=== PATIENT | female | born 1970 | race Caucasian/White ===

== ENCOUNTER 2017-07-20 09:26 | Day surgery (SDC) | payer OTHER ==
[2017-07-20] MEDS ORDERED: PROPOFOL 20 ML ONE ×2 (10:22)
[2017-07-20 10:25] VITALS: BMI 34.9
[2017-07-20 11:13] VITALS: TEMP 97.2
[2017-07-20 12:49] VITALS: BP 110/56; PULSE 75
--- NOTE | 2017-07-21 15:47 | PATH ---
Surgical Pathology Report Patient Name: SHILO RAINEY [facility]. Rec. #: [id number] /Age/Gender: 1970 (Age: 46) / F Account: [id number] Location: U-ENDOSCOPY Taken: 07/20/2017 Received: 07/20/2017 Reported: 07/21/2017 Physicians: Alex Fitzpatrick M.D. Specimen(s) Received BX TERMINAL ILEUM Clinical History Family history of colon cancer, anemia Ulcer terminal ileum, rule out Crohn's disease Final Diagnosis TERMINAL ILEUM, ULCER, BIOPSY: ILEAL MUCOSA SHOWING MODERATE CHRONIC ACTIVE ILEITIS WITH PROMINENT REACTIVE LYMPHOID AGGREGATES. NEGATIVE FOR DYSPLASIA. Electronically Signed Kalpana Garvey M.D. Gross Description Received in formalin, labeled "biopsy ulcer terminal ileum" is a freeman, irregular portion of soft tissue measuring 0.4 cm. in greatest dimension. The specimen is submitted in toto in one cassette. 07/20/2017 saudi07/20/2017
== END 2017-07-20 12:25 | disposition home or self-care (01) ==
LOC: JASU-ENDO 09:26
PROVIDERS: ATTEND Internal Medicine Gastroenterology
PROC: 0DJD8ZZ Inspection of Lower Intestinal Tract, Via Natural or Artificial Opening Endoscopic (ICD-10-PCS; principal; 2017-07-20 10:00)
DX: D64.9 Anemia, unspecified (principal); K52.9 Noninfective gastroenteritis and colitis, unspecified; K63.3 Ulcer of intestine; K64.8 Other hemorrhoids
CPT/HCPCS: 84703; 88305-TC

== ENCOUNTER 2019-05-19 10:37 | Inpatient (IN) | payer OTHER ==
--- NOTE | 2019-05-19 11:22 | PDOC ---
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 baseline creatinine is 1.9, on 05/16 was noted to be 3.45. denies sob , no chest pain. mild fatigue, no nausea. good appetitie. no change to urine output. no hematuria., no dysuria, no frequency. recently on azithromycin completed 5 day course 3 days ago for upper respiratory infection ( sore throat). 05/19/19 11:19 Past History - Past Medical History Allergies/Adverse Reactions: Allergies Allergy/AdvReac Type Severity Reaction Status Date / Time No Known Allergies Allergy Verified 05/19/19 10:47 Home Medications: Ambulatory Orders Atorvastatin Ca [Lipitor] 10 mg PO DAILY 07/19/17 Ergocalciferol (Vitamin D2) [Vitamin D2] 50,000 unit PO WEEKLY 07/19/17 Diltiazem HCl [Diltiazem 24Hr Cd] 240 mg PO DAILY 05/19/19 Fenofibrate Nanocrystallized [Fenofibrate] 145 mg PO DAILY 05/19/19 Loratadine [Claritin -] 10 mg PO DAILY PRN 05/19/19 [place]-3/Dha/Epa/Fish Oil [Fish Oil 1,000 mg Softgel] 2 each PO DAILY 05/19/19 Anemia: Yes Asthma: No Cancer: No Cardiac Disorders: No COPD: No Disorders: Yes (KIDNEY STONES) HTN: Yes Hypercholesterolemia: Yes Kidney Stones: Yes - Surgical History Abdominal Surgery: No Appendectomy: No Cardiac Surgery: No Orthopedic Surgery: No - Family Disease History Family Disease History: Diabetes: Mother, Heart Disease: Mother - Immunization History Immunization Up to Date: Yes - Suicide/Smoking/Psychosocial Hx Smoking Status: Yes Smoking History: Current every day smoker Have you smoked in the past 12 months: Yes Number of Cigarettes Smoked Daily: 5 Information on smoking cessation initiated: No 'Breaking Loose' booklet given: 07/20/17 Hx Alcohol Use: No Drug/Substance Use Hx: No Substance Use Type: None Hx Substance Use Treatment: No Review of Systems - Review of Systems Constitutional: No: Chills, Fever, Weakness HEENTM: No: Eye Pain Respiratory: No: Cough, Orthopnea, Shortness of Breath Cardiac (ROS): No: Chest Pain, Edema, Irregular Heart Rate : No: Burning, Dysuria, Discharge Musculoskeletal: No: Back Pain All Other Systems: Reviewed and Negative *Physical Exam - Vital Signs Last Vital Signs Temp Pulse Resp BP Pulse Ox 98.6 F 92 H 16 156/78 98 05/19/19 10:44 05/19/19 10:44 05/19/19 10:44 05/19/19 10:44 05/19/19 10:44 - Physical Exam Comments: 05/19/19 11:20 awake alert lungs clear bilaterally heart rrr no mrg abd soft nt nd ext wwp no cva tenderness. skin warm and dry. nuero alert oriented x 3. ED Treatment Course - LABORATORY CBC & Chemistry Diagram: 05/20/19 06:42 05/20/19 06:42 Medical Decision Making - Medical Decision Making 05/19/19 11:21 pt 48 yo F h/o HTN HLD, polycystic kidney diseaes, here with elevated creatinine. 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 ua labs ekg cxr ro pulm edema. 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 message left for dr estevez, awaiting call back. will admit for renal failure. give gentle hydration. 500 NS. consult nephrology. d/w admitting team, admitted to dr quintana. 05/19/19 16:00 focused ED ultrasound renal indication pckd, renal failure bilat kidneys scanned in two planes. both demonstrating several cyst c/w known polycystic kidney disease. right kidney measures 17 cm in length, and left 15 cm. no noted hydronephrosis however diffiuclty to visualize pelvis due to severity of cystic disease. bladder nondistended. impression: bilat polycystic kidneys. pt admitted. will consult nephrology . d/w dr adames, recommend partner [facility]. may require future dialysis. d/w admitting team. will admit. *DC/Admit/Observation/Transfer Diagnosis at time of Disposition: Renal failure - Discharge Dispostion Decision to Admit order: Yes - Referrals - Patient Instructions - Post Discharge Activity
[2019-05-19 11:42] LABS: BASO % 0.9 % (0-2.0); EOS % 0.8 % (0-4.5); HEMATOCRIT 29.6 % (32.4-45.2); LYMPH % 18.5 % (8-40); MCH 27.4 pg (25.7-33.7); MCHC 33.7 g/dl (32.0-36.0); MEAN CELL VOLUME 81.3 fl (80-96); MEAN PLT VOLUME 8.1 fl (7.5-11.1); MONO % 5.9 % (3.8-10.2); NEUT % 73.9 % (42.8-82.8); PLATELET COUNT 296 K/MM3 (134-434); RBC 3.64 M/mm3 (3.60-5.2); RDW 13.4 % (11.6-15.6); WHITE BLOOD COUNT 8.2 K/mm3 (4.0-10.0)
[2019-05-19 12:15] LABS: ALBUMIN 3.4 g/dl (3.4-5.0); BILIRUBIN,TOTAL 0.2 mg/dL (0.2-1); BLOOD UREA NITROGEN 57.6 mg/dL (7-18); CREATININE 3.9 mg/dL (0.55-1.3); POTASSIUM 4.3 mmol/L (3.5-5.1); TOT PROT 6.9 g/dl (6.4-8.2)
[2019-05-19 13:42] LABS: EPI CELLS 1.6 /HPF (0-5/HPF); HYALINE CASTS 1 /lpf (0-8); URINE APPEARANCE CLEAR; URINE BACTERIA 327.9 /hpf (NEGATIVE); URINE BILIRUBIN NEGATIVE (NEGATIVE); URINE COLOR YELLOW; URINE GLUCOSE (UA) NEGATIVE (NEGATIVE); URINE KETONE NEGATIVE (NEGATIVE); URINE LEUK ESTERASE NEGATIVE (NEGATIVE); URINE NITRITE NEGATIVE (NEGATIVE); URINE PROTEIN 2+ (NEGATIVE); URINE RBC 3 /hpf (0-4); URINE UROBILINOGEN 0.2 mg/dL (0.2-1.0); URINE WBC 3 /hpf (0-5)
--- NOTE | 2019-05-19 14:14 | HP ---
Admitting History and Physical - Primary Care Physician PCP: Germán Estevez - Admission Chief Complaint: elevated creatinine History of Present Illness: Patient is a 48 year old female with a significant past medical history of hypertension, hyperlipidemia, CKD, polycystic kidney disease and daily smoker (2 -5 cigarettes per day). Patient has been following Dr. Marcelo for approximately 1 year for worsening for CKD. Patient sent to [facility] ED from Dr. Estevez office for elevated creatinine on office labs. Her baseline creatinine is reported to be 1.9 and noted to be 3.4 on office labs. On presentation to the ED, creatinine noted to be 3.9. She denies shortness of breath, denies chest pain, no fatigue, she reports making urine, denies any hematuria. She was recently treated for an URI with azithromycin but denies any any NSAIDS. Nephrology has been consulted. Will start patient on gentle hydration pending neprhology evaluation. History Source: Patient Limitations to Obtaining History: No Limitations - Past Medical History Cardiovascular: Yes: HTN - Smoking History Smoking history: Current every day smoker Have you smoked in the past 12 months: Yes Aproximately how many cigarettes per day: 5 - Alcohol/Substance Use Hx Alcohol Use: No Home Medications - Allergies Allergies/Adverse Reactions: Allergies Allergy/AdvReac Type Severity Reaction Status Date / Time No Known Allergies Allergy Verified 05/19/19 10:47 - Home Medications Home Medications: Ambulatory Orders Atorvastatin Ca [Lipitor] 10 mg PO DAILY 07/19/17 Ergocalciferol (Vitamin D2) [Vitamin D2] 50,000 unit PO WEEKLY 07/19/17 Diltiazem HCl [Diltiazem 24Hr Cd] 240 mg PO DAILY 05/19/19 Fenofibrate Nanocrystallized [Fenofibrate] 145 mg PO DAILY 05/19/19 Loratadine [Claritin -] 10 mg PO DAILY PRN 05/19/19 [place]-3/Dha/Epa/Fish Oil [Fish Oil 1,000 mg Softgel] 2 each PO DAILY 05/19/19 Review of Systems - Review of Systems Constitutional: reports: No Symptoms Eyes: reports: No Symptoms HENT: reports: No Symptoms Neck: reports: No Symptoms Cardiovascular: reports: No Symptoms Respiratory: reports: No Symptoms Gastrointestinal: reports: No Symptoms Genitourinary: reports: No Symptoms Physical Examination Vital Signs: Vital Signs Temperature 98.6 F 05/19/19 10:44 Pulse Rate 92 H 05/19/19 10:44 Respiratory Rate 16 05/19/19 10:44 Blood Pressure 156/78 05/19/19 10:44 O2 Sat by Pulse Oximetry (%) 98 05/19/19 10:44 Constitutional: Yes: Well Nourished, No Distress, Calm Eyes: Yes: WNL HENT: Yes: WNL Neck: Yes: WNL Cardiovascular: Yes: Regular Rate and Rhythm Respiratory: Yes: WNL Gastrointestinal: Yes: WNL ...Rectal Exam: Yes: Deferred Edema: No Labs: CBC, BMP 05/19/19 11:38 05/19/19 11:25 Problem List - Problems (1) Renal failure Assessment/Plan: Elevated BUN and creatinine of 3.9 on admission will start on gentle hydration of NS @ 50cc Nephrology consulted further workup per nephrology Repeat labs in a.m. Renal diet renal dose medications. Code(s): N19 - UNSPECIFIED KIDNEY FAILURE (2) Hypertension Assessment/Plan: BP controlled on Cardizem 240mg daily Monitor BP q 4 Code(s): I10 - ESSENTIAL (PRIMARY) HYPERTENSION (3) Hyperlipemia Assessment/Plan: On Lipitor and fenofibrate Code(s): E78.5 - HYPERLIPIDEMIA, UNSPECIFIED (4) Prophylactic measure Assessment/Plan: fen NS @ 50cc/hr monitor electrolytes renal diet full code Code(s): Z29.9 - ENCOUNTER FOR PROPHYLACTIC MEASURES, UNSPECIFIED Visit type - Emergency Visit Emergency Visit: Yes ED Registration Date: 05/19/19 Care time: The patient presented to the Emergency Department on the above date and was hospitalized for further evaluation of their emergent condition. - New Patient This patient is new to me today: Yes Date on this admission: 05/19/19 - Critical Care Critical Care patient: No
[2019-05-19 14:35] LABS: YEAST NONE SEEN (NEGATIVE)
[2019-05-19] MEDS ORDERED: SODIUM CHLORIDE 1,000 ML IV SCH (16:30)
[2019-05-19 17:49] VITALS: BMI 33.5
[2019-05-20 08:07] LABS: BLOOD UREA NITROGEN 50.1 mg/dL (7-18); CALCIUM 8.1 mg/dL (8.5-10.1); CREATININE 3.5 mg/dL (0.55-1.3); MAGNESIUM 1.9 mg/dL (1.8-2.4); POTASSIUM 4.1 mmol/L (3.5-5.1)
--- NOTE | 2019-05-20 08:14 | EKG ---
Test Reason : Blood Pressure : / mmHG Vent. Rate : 092 BPM Atrial Rate : 092 BPM P-R Int : 130 ms QRS Dur : 084 ms QT Int : 368 ms P-R-T Axes : 027 018 017 degrees QTc Int : 455 ms SINUS RHYTHM WITH PREMATURE SUPRAVENTRICULAR COMPLEXES AND FUSION COMPLEXES OTHERWISE NORMAL ECG WHEN COMPARED WITH ECG OF 08-OCT-2016 08:50, FUSION COMPLEXES ARE NOW PRESENT PREMATURE SUPRAVENTRICULAR COMPLEXES ARE NOW PRESENT T WAVE AMPLITUDE HAS INCREASED IN ANTERIOR LEADS Confirmed by SHEILA GALLOWAY, KENN ([id number]) on 05/20/2019 8:14:37 AM Referred By: Confirmed By:KENN SOSA MD
[2019-05-20] MEDS: FENOFIBRIC ACID 135 MG CAP PO SCH (09:03)
[2019-05-20 10:05] LABS: HEMATOCRIT 28.5 % (32.4-45.2); HEMOGLOBIN 9.4 GM/dL (10.7-15.3); MCH 27.4 pg (25.7-33.7); MCHC 33.1 g/dl (32.0-36.0); MEAN CELL VOLUME 82.8 fl (80-96); MEAN PLT VOLUME 8.7 fl (7.5-11.1); RBC 3.45 M/mm3 (3.60-5.2); RDW 13.8 % (11.6-15.6); WHITE BLOOD COUNT 7.2 K/mm3 (4.0-10.0)
[2019-05-20 10:22] LABS: PLATELET COUNT 296 K/MM3 (134-434)
--- NOTE | 2019-05-20 11:41 | PN ---
Progress Note, Physician Chief Complaint: denies any malaise or discomfort History of Present Illness: Patient is a 48 year old female with a significant past medical history of hypertension, hyperlipidemia, CKD, polycystic kidney disease and daily smoker (2 -5 cigarettes per day). Patient has been following Dr. Marcelo for approximately 1 year for worsening for CKD. Patient sent to [facility] ED from Dr. Estevez office for elevated creatinine on office labs. Her baseline creatinine is reported to be 1.9 and noted to be 3.4 on office labs. On presentation to the ED, creatinine noted to be 3.9. She denies shortness of breath, denies chest pain, no fatigue, she reports making urine, denies any hematuria. She was recently treated for an URI with azithromycin but denies any any NSAIDS. Nephrology has been consulted. Will start patient on gentle hydration pending neprhology evaluation. - Current Medication List Current Medications: Active Medications Atorvastatin Calcium (Lipitor -) 10 mg PO [facility] Diltiazem HCl (Cardizem Cd -) 240 mg PO DAILY [facility] Last Admin: 05/20/19 09:02 Dose: 240 mg Fenofibric Acid (Trilipix -) 135 mg PO DAILY [facility] Last Admin: 05/20/19 09:03 Dose: 135 mg Sodium Chloride (Normal Saline -) 1,000 mls @ 50 mls/hr IV ASDIR [facility] Stop: 05/20/19 16:24 Last Admin: 05/19/19 17:26 Dose: 50 mls/hr - Objective Vital Signs: Vital Signs Temperature 98.4 F 05/20/19 10:00 Pulse Rate 72 05/20/19 10:00 Respiratory Rate 20 05/20/19 10:00 Blood Pressure 149/78 05/20/19 10:00 O2 Sat by Pulse Oximetry (%) 100 05/19/19 21:00 Constitutional: Yes: Well Nourished Eyes: Yes: WNL HENT: Yes: WNL Neck: Yes: WNL Cardiovascular: Yes: WNL Respiratory: Yes: WNL ...Rectal Exam: Yes: WNL Genitourinary: Yes: WNL Labs: CBC, BMP 05/20/19 06:42 05/20/19 06:42 Problem List - Problems (1) Renal failure Assessment/Plan: Elevated BUN and creatinine of 3.9 on admission, improving to 3.5 with gentle hydration will continue hydration of NS @ 50cc pending nephrology eval. further workup per nephrology Repeat labs in a.m. Renal diet renal dose medications. Code(s): N19 - UNSPECIFIED KIDNEY FAILURE (2) Hypertension Assessment/Plan: BP controlled on Cardizem 240mg daily Monitor BP q 4 Code(s): I10 - ESSENTIAL (PRIMARY) HYPERTENSION (3) Hyperlipemia Assessment/Plan: On Lipitor and fenofibrate Code(s): E78.5 - HYPERLIPIDEMIA, UNSPECIFIED (4) Prophylactic measure Assessment/Plan: fen NS @ 50cc/hr monitor electrolytes renal diet full code Code(s): Z29.9 - ENCOUNTER FOR PROPHYLACTIC MEASURES, UNSPECIFIED Visit type - Emergency Visit Emergency Visit: Yes ED Registration Date: 05/19/19 Care time: The patient presented to the Emergency Department on the above date and was hospitalized for further evaluation of their emergent condition. - New Patient This patient is new to me today: No - Critical Care Critical Care patient: No - Discharge Referral Referred to [facility] Med P.C.: No
--- NOTE | 2019-05-20 16:23 | CON.NEP ---
Consult - History of Present Illness History of Present Illness: 48 yo F h/o HTN HLD, CKD from polycystic kidney disease, ( dr garcia [place]) here today from clinic Dr Estevez, told to come to ED for elevated creatinine. baseline creatinine is 1.9, on 05/16 was noted to be 3.45. denies sob , no chest pain. mild fatigue, no nausea. good appetitie. no change to urine output. no hematuria., no dysuria, no frequency. recently on azithromycin completed 5 day course 3 days ago for upper respiratory infection ( sore throat). 05/19/19 11:19 - Past Medical History Cardio/Vascular: Yes: HTN ...LMP: 05/01/19 ...: No - Alcohol/Substance Use Hx Alcohol Use: No - Smoking History Smoking history: Current every day smoker Have you smoked in the past 12 months: Yes Aproximately how many cigarettes per day: 5 Home Medications - Allergies Allergies/Adverse Reactions: Allergies Allergy/AdvReac Type Severity Reaction Status Date / Time No Known Allergies Allergy Verified 05/19/19 10:47 - Home Medications Home Medications: Ambulatory Orders Atorvastatin Ca [Lipitor] 10 mg PO DAILY 07/19/17 Ergocalciferol (Vitamin D2) [Vitamin D2] 50,000 unit PO WEEKLY 07/19/17 Diltiazem HCl [Diltiazem 24Hr Cd] 240 mg PO DAILY 05/19/19 Fenofibrate Nanocrystallized [Fenofibrate] 145 mg PO DAILY 05/19/19 Loratadine [Claritin -] 10 mg PO DAILY PRN 05/19/19 [place]-3/Dha/Epa/Fish Oil [Fish Oil 1,000 mg Softgel] 2 each PO DAILY 05/19/19 Nephrology Consult - Height Height: 5 ft - Weight Weight: 172 lb 0.2 oz - BMI Body Mass Index (BMI): 33.5 - Lab Results CBC,BMP: CBC, BMP 05/20/19 06:42 05/20/19 06:42 Anion Gap: Anion Gap Anion Gap 7 MMOL/L (8-16) L 05/20/19 06:42 - Physical Examination Vital Signs: Vital Signs Temperature 98.2 F 05/20/19 14:18 Pulse Rate 86 05/20/19 14:18 Respiratory Rate 18 05/20/19 14:18 Blood Pressure 132/74 05/20/19 14:18 O2 Sat by Pulse Oximetry (%) 96 05/20/19 09:00 Assessment/Plan MAGGIE on CKD unclear wht the maggie is from h/o sinus problems rxd loratadine and an antibiotic denies other malaise or symptom seems to have early good response to IVF at 50 cc I will increase IVF rate to 100 and f/u labs tomorrow PKD baseline creat unclear pt
[2019-05-20] MEDS: SODIUM CHLORIDE 1,000 ML IV SCH (16:30)
[2019-05-20] MEDS: ATORVASTATIN CA 10 MG TABLET (FP) PO SCH (21:54)
[2019-05-21] MEDS: SODIUM CHLORIDE 1,000 ML IV SCH ×4 (02:35→23:19)
[2019-05-21 08:17] LABS: ALBUMIN 2.9 g/dl (3.4-5.0); BILIRUBIN,TOTAL 0.3 mg/dL (0.2-1); CALCIUM 7.9 mg/dL (8.5-10.1); CREATININE 3.5 mg/dL (0.55-1.3); MAGNESIUM 1.8 mg/dL (1.8-2.4); POTASSIUM 4.2 mmol/L (3.5-5.1)
[2019-05-21 08:19] LABS: BASO % 0.5 % (0-2.0); HEMATOCRIT 27.2 % (32.4-45.2); LYMPH % 27.7 % (8-40); MCH 27.5 pg (25.7-33.7); MCHC 33.2 g/dl (32.0-36.0); MEAN CELL VOLUME 82.8 fl (80-96); MEAN PLT VOLUME 8.5 fl (7.5-11.1); MONO % 5.6 % (3.8-10.2); NEUT % 65.2 % (42.8-82.8); RBC 3.28 M/mm3 (3.60-5.2); RDW 13.6 % (11.6-15.6); WHITE BLOOD COUNT 6.5 K/mm3 (4.0-10.0)
[2019-05-21 08:39] LABS: PLATELET COUNT 278 K/MM3 (134-434)
[2019-05-21] MEDS: FENOFIBRIC ACID 135 MG CAP PO SCH (09:18)
--- NOTE | 2019-05-21 11:05 | PN ---
Progress Note, Physician Chief Complaint: denies any malaise or discomfort History of Present Illness: Patient is a 48 year old female with a significant past medical history of hypertension, hyperlipidemia, CKD, polycystic kidney disease and daily smoker (2 -5 cigarettes per day). Patient has been following Dr. Marcelo for approximately 1 year for worsening for CKD. Patient sent to [facility] ED from Dr. Estevez office for elevated creatinine on office labs. Her baseline creatinine is reported to be 1.9 and noted to be 3.4 on office labs. On presentation to the ED, creatinine noted to be 3.9. She denies shortness of breath, denies chest pain, no fatigue, she reports making urine, denies any hematuria. She was recently treated for an URI with azithromycin but denies any any NSAIDS. focused ED ultrasound renal per ED admission note: indication pckd, renal failure bilat kidneys scanned in two planes. both demonstrating several cyst c/w known polycystic kidney disease. right kidney measures 17 cm in length, and left 15 cm. no noted hydronephrosis however diffiuclty to visualize pelvis due to severity of cystic disease. bladder nondistended. impression: bilat polycystic kidneys. - Current Medication List Current Medications: Active Medications Atorvastatin Calcium (Lipitor -) 10 mg PO HS [facility] Last Admin: 05/20/19 21:54 Dose: 10 mg Diltiazem HCl (Cardizem Cd -) 240 mg PO DAILY [facility] Last Admin: 05/21/19 09:18 Dose: 240 mg Fenofibric Acid (Trilipix -) 135 mg PO DAILY [facility] Last Admin: 05/21/19 09:18 Dose: 135 mg Sodium Chloride (Normal Saline -) 1,000 mls @ 100 mls/hr IV ASDIR [facility] Stop: 05/25/19 16:24 Last Admin: 05/21/19 02:35 Dose: 100 mls/hr - Objective Vital Signs: Vital Signs Temperature 98.7 F 05/21/19 06:00 Pulse Rate 74 05/21/19 06:00 Respiratory Rate 18 05/21/19 06:00 Blood Pressure 141/73 05/21/19 06:00 O2 Sat by Pulse Oximetry (%) 98 05/20/19 21:00 Constitutional: Yes: Well Nourished, No Distress Eyes: Yes: WNL HENT: Yes: WNL, Atraumatic Neck: Yes: WNL Cardiovascular: Yes: WNL Respiratory: Yes: Regular Gastrointestinal: Yes: Normal Bowel Sounds ...Rectal Exam: Yes: Deferred Musculoskeletal: Yes: WNL Extremities: Yes: WNL Edema: No Peripheral Pulses WNL: Yes Integumentary: Yes: WNL Neurological: Yes: WNL, Alert, Oriented Labs: CBC, BMP 05/21/19 07:10 05/21/19 07:10 Problem List - Problems (1) Renal failure Assessment/Plan: Elevated BUN and creatinine of 3.9 on admission, currently 3.5 with NS @ 100 further workup per nephrology Renal diet renal dose medications. Code(s): N19 - UNSPECIFIED KIDNEY FAILURE (2) Hypertension Assessment/Plan: BP controlled on Cardizem 240mg daily Monitor BP q 4 Code(s): I10 - ESSENTIAL (PRIMARY) HYPERTENSION (3) Hyperlipemia Assessment/Plan: On Lipitor and fenofibrate Code(s): E78.5 - HYPERLIPIDEMIA, UNSPECIFIED (4) Prophylactic measure Assessment/Plan: fen NS @ 100cc/hr monitor electrolytes renal diet full code Code(s): Z29.9 - ENCOUNTER FOR PROPHYLACTIC MEASURES, UNSPECIFIED Visit type - Emergency Visit Emergency Visit: Yes ED Registration Date: 05/19/19 Care time: The patient presented to the Emergency Department on the above date and was hospitalized for further evaluation of their emergent condition. - New Patient This patient is new to me today: No - Critical Care Critical Care patient: No - Discharge Referral Referred to [facility] Med P.C.: No
--- NOTE | 2019-05-21 20:41 | PN ---
Progress Note (short form) - Note Progress Note: MAGGIE on CKD unclear wht the maggie is from s/p sinus problems - rxd loratadine and an antibiotic denies other malaise or symptom seems to have early good response to IVF at 50 cc I will increase IVF rate to 100 and f/u labs tomorrow PKD baseline creat unclear Current Medications Atorvastatin Calcium (Lipitor -) 10 mg PO HS [facility] Last Admin: 05/20/19 21:54 Dose: 10 mg Diltiazem HCl (Cardizem Cd -) 240 mg PO DAILY [facility] Last Admin: 05/21/19 09:18 Dose: 240 mg Fenofibric Acid (Trilipix -) 135 mg PO DAILY [facility] Last Admin: 05/21/19 09:18 Dose: 135 mg Sodium Chloride (Normal Saline -) 1,000 mls @ 100 mls/hr IV ASDIR [facility] Stop: 05/25/19 16:24 Last Admin: 05/21/19 16:29 Dose: 100 mls/hr Last Vital Signs Temp Pulse Resp BP Pulse Ox 98.8 F 96 H 18 138/72 98 05/21/19 18:00 05/21/19 18:00 05/21/19 18:00 05/21/19 18:00 05/21/19 09:00 alert in nad feeling better today Lungs clear heart reg Abd soft nontender ext no edema CBC, BMP 05/21/19 07:10 05/21/19 07:10 IMP- MAGGIE on chronic on IVF hydration Plan- f/u labs tomorrow continue IVF strict I and O
[2019-05-21] MEDS: ATORVASTATIN CA 10 MG TABLET (FP) PO SCH (21:42)
[2019-05-22 07:07] LABS: SERUM IRON SATURATION 18 % (15-55); TOTAL IRON BINDING CAPACITY 387 ug/dL (250-450)
[2019-05-22 08:24] LABS: BASO % 0.5 % (0-2.0); EOS % 0.8 % (0-4.5); HEMATOCRIT 26.7 % (32.4-45.2); HEMOGLOBIN 8.9 GM/dL (10.7-15.3); LYMPH % 22.9 % (8-40); MCH 27.7 pg (25.7-33.7); MCHC 33.4 g/dl (32.0-36.0); MEAN CELL VOLUME 82.8 fl (80-96); MEAN PLT VOLUME 8.4 fl (7.5-11.1); MONO % 6.9 % (3.8-10.2); NEUT % 68.9 % (42.8-82.8); PLATELET COUNT 263 K/MM3 (134-434); RBC 3.23 M/mm3 (3.60-5.2); RDW 13.5 % (11.6-15.6); WHITE BLOOD COUNT 6.7 K/mm3 (4.0-10.0)
[2019-05-22 09:07] LABS: BILIRUBIN,TOTAL 0.2 mg/dL (0.2-1); CALCIUM 8.1 mg/dL (8.5-10.1); CREATININE 3.4 mg/dL (0.55-1.3); POTASSIUM 4.1 mmol/L (3.5-5.1); TOT PROT 5.8 g/dl (6.4-8.2)
[2019-05-22] MEDS: SODIUM CHLORIDE 1,000 ML IV SCH ×3 (09:54→15:01)
[2019-05-22] MEDS: FENOFIBRIC ACID 135 MG CAP PO SCH (10:38)
[2019-05-22] MEDS ORDERED: ACETAMINOPHEN 325 MG TABLET (FP) PO PRN (12:31)
--- NOTE | 2019-05-22 14:13 | PN ---
Progress Note, Physician Chief Complaint: having mild headaches this morning, otherwise feels well. History of Present Illness: Patient is a 48 year old female with a significant past medical history of hypertension, hyperlipidemia, CKD, polycystic kidney disease and daily smoker (2 -5 cigarettes per day). Patient has been following Dr. Marcelo for approximately 1 year for worsening for CKD. Patient sent to [facility] ED from Dr. Estevez office for elevated creatinine on office labs. Her baseline creatinine is reported to be 1.9 and noted to be 3.4 on office labs. On presentation to the ED, creatinine noted to be 3.9. She denies shortness of breath, denies chest pain, no fatigue, she reports making urine, denies any hematuria. She was recently treated for an URI with azithromycin but denies any any NSAIDS. ED ultrasound renal per ED admission note: indication pckd, renal failure bilat kidneys scanned in two planes. both demonstrating several cyst c/w known polycystic kidney disease. right kidney measures 17 cm in length, and left 15 cm. no noted hydronephrosis however diffiuclty to visualize pelvis due to severity of cystic disease. bladder nondistended. impression: bilat polycystic kidneys. Currently, patient is being managed with IVF of NS @ 100cc/hr. She is being followed by nephrology. Further plans and workup per nephrology. - Current Medication List Current Medications: Active Medications Acetaminophen (Tylenol -) 650 mg PO Q6H PRN PRN Reason: [facility]AC[facility] Last Admin: 05/22/19 13:04 Dose: 650 mg Atorvastatin Calcium (Lipitor -) 10 mg PO HS [facility] Last Admin: 05/21/19 21:42 Dose: 10 mg Diltiazem HCl (Cardizem Cd -) 240 mg PO DAILY [facility] Last Admin: 05/22/19 10:38 Dose: 240 mg Fenofibric Acid (Trilipix -) 135 mg PO DAILY [facility] Last Admin: 05/22/19 10:38 Dose: 135 mg Sodium Chloride (Normal Saline -) 1,000 mls @ 100 mls/hr IV ASDIR [facility] Stop: 05/25/19 16:24 Last Admin: 05/22/19 09:54 Dose: 100 mls/hr - Objective Vital Signs: Vital Signs Temperature 98.7 F 05/22/19 08:54 Pulse Rate 72 05/22/19 08:54 Respiratory Rate 20 05/22/19 09:00 Blood Pressure 134/68 05/22/19 08:54 O2 Sat by Pulse Oximetry (%) 97 05/22/19 09:00 Constitutional: Yes: Well Nourished, No Distress Eyes: Yes: WNL HENT: Yes: WNL Neck: Yes: WNL, Supple Cardiovascular: Yes: Regular Rate and Rhythm Respiratory: Yes: Regular, CTA Bilaterally Gastrointestinal: Yes: Normal Bowel Sounds, Soft ...Rectal Exam: Yes: Deferred Genitourinary: Yes: WNL Edema: No Peripheral Pulses WNL: No Integumentary: Yes: WNL Labs: CBC, BMP 05/22/19 07:51 05/22/19 07:51 Problem List - Problems (1) Renal failure Assessment/Plan: Elevated BUN and creatinine of 3.9 on admission, currently 3.4 with NS @ 100 further workup per nephrology Renal diet renal dose medications. Code(s): N19 - UNSPECIFIED KIDNEY FAILURE (2) Hypertension Assessment/Plan: BP controlled on Cardizem 240mg daily Monitor BP q 4 Code(s): I10 - ESSENTIAL (PRIMARY) HYPERTENSION (3) Hyperlipemia Assessment/Plan: On Lipitor and fenofibrate Code(s): E78.5 - HYPERLIPIDEMIA, UNSPECIFIED (4) Tobacco abuse Assessment/Plan: smokes 2-5 cigarettes on most days cessation discussed as it can be harmful to her kidneys she is refusing nicotine patch, willing to quit Code(s): Z72.0 - TOBACCO USE (5) Prophylactic measure Assessment/Plan: fen NS @ 100cc/hr monitor electrolytes renal diet full code Code(s): Z29.9 - ENCOUNTER FOR PROPHYLACTIC MEASURES, UNSPECIFIED Visit type - Emergency Visit Emergency Visit: Yes ED Registration Date: 05/19/19 Care time: The patient presented to the Emergency Department on the above date and was hospitalized for further evaluation of their emergent condition. - New Patient This patient is new to me today: No - Critical Care Critical Care patient: No - Discharge Referral Referred to [facility] Med P.C.: No
--- NOTE | 2019-05-22 16:07 | PN ---
Progress Note, Physician History of Present Illness: Pt seen and examined at bedside. She is awake and alert. She denies shortness of breath. - Current Medication List Current Medications: Active Medications Acetaminophen (Tylenol -) 650 mg PO Q6H PRN PRN Reason: HEADACHE Last Admin: 05/22/19 13:04 Dose: 650 mg Atorvastatin Calcium (Lipitor -) 10 mg PO HS SUSAN Last Admin: 05/21/19 21:42 Dose: 10 mg Diltiazem HCl (Cardizem Cd -) 240 mg PO DAILY SUSAN Last Admin: 05/22/19 10:38 Dose: 240 mg Fenofibric Acid (Trilipix -) 135 mg PO DAILY SUSAN Last Admin: 05/22/19 10:38 Dose: 135 mg Sodium Chloride (Normal Saline -) 1,000 mls @ 100 mls/hr IV ASDIR SUSAN Stop: 05/25/19 16:24 Last Admin: 05/22/19 15:01 Dose: 100 mls/hr - Objective Vital Signs: Vital Signs Temperature 98.3 F 05/22/19 14:00 Pulse Rate 79 05/22/19 14:00 Respiratory Rate 20 05/22/19 14:00 Blood Pressure 140/73 05/22/19 14:00 O2 Sat by Pulse Oximetry (%) 97 05/22/19 09:00 Constitutional: Yes: Calm Eyes: Yes: Conjunctiva Clear HENT: Yes: Atraumatic Neck: Yes: Supple Cardiovascular: Yes: S1, S2 Respiratory: Yes: CTA Bilaterally Gastrointestinal: Yes: Soft Genitourinary: Yes: WNL Musculoskeletal: Yes: WNL Extremities: Yes: WNL Edema: No Neurological: Yes: Oriented Psychiatric: Yes: Oriented Labs: CBC, BMP 05/22/19 07:51 05/22/19 07:51 Assessment/Plan Current Medications Generic Name Dose Route Start Last Admin Trade Name Freq PRN Reason Stop Dose Admin Acetaminophen 650 mg 05/22/19 12:31 05/22/19 13:04 Tylenol - PO 650 mg Q6H PRN Administration HEADACHE Atorvastatin Calcium 10 mg 05/20/19 22:00 05/21/19 21:42 Lipitor - PO 10 mg HS SUSAN Administration Diltiazem HCl 240 mg 05/20/19 10:00 05/22/19 10:38 Cardizem Cd - PO 240 mg DAILY SUSAN Administration Fenofibric Acid 135 mg 05/20/19 10:00 05/22/19 10:38 Trilipix - PO 135 mg DAILY SUSAN Administration Sodium Chloride 1,000 mls @ 100 mls/hr 05/20/19 16:14 05/22/19 15:01 Normal Saline - IV 05/25/19 16:24 100 mls/hr ASDIR SUSAN Administration Impression 1. CKD 2. PKD 3. HTN 4. HLD Plan - renal function slowly improving - check renal ultrasound - can be progression of ckd - will need outpt follow up with Dr Mercado
[2019-05-22] MEDS: ATORVASTATIN CA 10 MG TABLET (FP) PO SCH (22:04)
[2019-05-23 07:34] VITALS: TEMP 98.9
[2019-05-23] MEDS: FENOFIBRIC ACID 135 MG CAP PO SCH (10:20)
--- NOTE | 2019-05-23 11:13 | DS ---
Physical Examination Vital Signs: Vital Signs Temperature 98.9 F 05/23/19 06:00 Pulse Rate 70 05/23/19 06:00 Respiratory Rate 18 05/23/19 06:00 Blood Pressure 127/68 05/23/19 06:00 O2 Sat by Pulse Oximetry (%) 98 05/22/19 21:00 Findings/Remarks: Doing well, eating breakfast no complaints, no abdominal pain, cp, sob, palpitations, LE edema Constitutional: Yes: Well Nourished, No Distress, Calm Cardiovascular: Yes: WNL, Regular Rate and Rhythm Respiratory: Yes: WNL, Regular, CTA Bilaterally Gastrointestinal: Yes: WNL, Normal Bowel Sounds, Soft Musculoskeletal: Yes: WNL Edema: No ...Motor Strength: WNL Labs: CBC, BMP 05/22/19 07:51 05/22/19 07:51 Discharge Summary Reason For Visit: RENAL FAILURE Current Active Problems Hyperlipemia (Acute) Hypertension (Acute) Renal failure (Acute) Tobacco abuse (Acute) Hospital Course: Patient is a 48 year old female with a PMHx of hypertension, hyperlipidemia, CKD , polycystic kidney disease and daily smoker (2-5 cigarettes per day). Patient has been following Dr. Mercado for approximately 1 year for worsening for CKD. Patient sent to [facility] ED from Dr. Estevez office for elevated creatinine on office labs. Her baseline creatinine is reported to be 1.9 and noted to be 3.4 on office labs. On presentation to the ED, creatinine noted to be 3.9. She denies shortness of breath, denies chest pain, no fatigue, she reports making urine, denies any hematuria. She was recently treated for an URI with azithromycin but denies any any NSAIDS. ED ultrasound renal per ED admission note: indication pckd, renal failure bilateral kidneys scanned in two planes. both demonstrating several cyst c/w known polycystic kidney disease. right kidney measures 17 cm in length, and left 15 cm. no noted hydronephrosis however difficulty to visualize pelvis due to severity of cystic disease. bladder nondistended. impression: bilateral polycystic kidneys. Patient was admitted to hospital: (1) Renal failure Elevated BUN and creatinine renal us with bilateral polycystic disease no acute pathology, outpatient MRI advised for further evaluation slightly improved creat with hydration further workup per nephrology OUTPATIENT renal diet renal dose medications (2) Hypertension BP controlled on Cardizem (3) Hyperlipemia On Lipitor and fenofibrate (4) Tobacco abuse smokes 2-5 cigarettes on most days cessation discussed as it can be harmful to her kidneys she is refusing nicotine patch, willing to quit Condition: Good - Instructions Referrals: Carlo Mercado MD [Staff Physician] - Germán Estevez MD [Non Staff, Medical] - Disposition: HOME - Home Medications Comprehensive Discharge Medication List: Ambulatory Orders Atorvastatin Ca [Lipitor] 10 mg PO DAILY 07/19/17 Ergocalciferol (Vitamin D2) [Vitamin D2] 50,000 unit PO WEEKLY 07/19/17 Diltiazem HCl [Diltiazem 24Hr Cd] 240 mg PO DAILY 05/19/19 Fenofibrate Nanocrystallized [Fenofibrate] 145 mg PO DAILY 05/19/19 Loratadine [Claritin -] 10 mg PO DAILY PRN 05/19/19 [place]-3/Dha/Epa/Fish Oil [Fish Oil 1,000 mg Softgel] 2 each PO DAILY 05/19/19
--- NOTE | 2019-05-23 12:00 | PN ---
Progress Note, Physician History of Present Illness: Pt seen and examined at bedside. She is awake and alert. She denies dysuria. She denies hematuria. - Current Medication List Current Medications: Active Medications Acetaminophen (Tylenol -) 650 mg PO Q6H PRN PRN Reason: HEADACHE Atorvastatin Calcium (Lipitor -) 10 mg PO HS [facility] Last Admin: 05/22/19 22:04 Dose: 10 mg Diltiazem HCl (Cardizem Cd -) 240 mg PO DAILY [facility] Last Admin: 05/23/19 10:21 Dose: 240 mg Fenofibric Acid (Trilipix -) 135 mg PO DAILY [facility] Last Admin: 05/23/19 10:20 Dose: 135 mg Sodium Chloride (Normal Saline -) 1,000 mls @ 100 mls/hr IV ASDIR SUSAN Stop: 05/25/19 16:24 Last Admin: 05/22/19 15:01 Dose: 100 mls/hr - Objective Vital Signs: Vital Signs Temperature 98.9 F 05/23/19 06:00 Pulse Rate 70 05/23/19 06:00 Respiratory Rate 18 05/23/19 06:00 Blood Pressure 127/68 05/23/19 06:00 O2 Sat by Pulse Oximetry (%) 98 05/22/19 21:00 Constitutional: Yes: Calm Eyes: Yes: Conjunctiva Clear HENT: Yes: Atraumatic Neck: Yes: Supple Cardiovascular: Yes: S1, S2 Respiratory: Yes: CTA Bilaterally Gastrointestinal: Yes: Soft Genitourinary: Yes: WNL Musculoskeletal: Yes: WNL Edema: No Integumentary: Yes: WNL Neurological: Yes: Oriented Psychiatric: Yes: Oriented Labs: CBC, BMP 05/22/19 07:51 05/22/19 07:51 Assessment/Plan Current Medications Generic Name Dose Route Start Last Admin Trade Name Freq PRN Reason Stop Dose Admin Acetaminophen 650 mg 05/22/19 12:31 Tylenol - PO Q6H PRN HEADACHE Atorvastatin Calcium 10 mg 05/20/19 22:00 05/22/19 22:04 Lipitor - PO 10 mg HS SUSAN Administration Diltiazem HCl 240 mg 05/20/19 10:00 05/23/19 10:21 Cardizem Cd - PO 240 mg DAILY SUSAN Administration Fenofibric Acid 135 mg 05/20/19 10:00 05/23/19 10:20 Trilipix - PO 135 mg DAILY SUSAN Administration Sodium Chloride 1,000 mls @ 100 mls/hr 05/20/19 16:14 05/22/19 15:01 Normal Saline - IV 05/25/19 16:24 100 mls/hr ASDIR SUSAN Administration Impression 1. CKD 2. PKD 3. HTN 4. HLD Plan - renal function continues to improve - will need outpt follow up - pt has PKD, possible worsening of renal function is progression of her disease - discussed importance of follow up, she has missed several appointments
[2019-05-23 12:28] VITALS: BP 146/73; PULSE 76
== END 2019-05-23 12:29 | disposition home or self-care (01) | DRG 469 ==
LOC: JER 10:37 → JERBED 14:03 → J5S 15:34
PROVIDERS: ADMIT Internal Medicine; ATTEND Internal Medicine
DX: N17.9 Acute kidney failure, unspecified (principal); F17.210 Nicotine dependence, cigarettes, uncomplicated; Q61.3 Polycystic kidney, unspecified; I13.10 Hypertensive heart and chronic kidney disease without heart failure, with stage 1 through stage 4 chronic kidney disease, or unspecified chronic kidney disease; N18.9 Chronic kidney disease, unspecified; E78.5 Hyperlipidemia, unspecified
CPT/HCPCS: 36415; 71046-TC-FY; 76775-TC; 80048; 80053; 81003; 82728; 83540; 83550; 83735; 84703; 85025; 85027; 93005; 93010; 99283-25; J7030

== ENCOUNTER 2022-01-16 10:22 | Inpatient (IN) | payer MEDICARE, OTHER ==
[2022-01-16 12:27] LABS: EOS % 0.7 % (0-4.5); HEMATOCRIT 23.8 % (32.4-45.2); HEMOGLOBIN 8.1 GM/dL (10.7-15.3); LYMPH % 13.3 % (8-40); MCH 32.4 pg (25.7-33.7); MCHC 33.9 g/dl (32.0-36.0); MEAN CELL VOLUME 95.7 fl (80-96); MEAN PLT VOLUME 7.5 fl (7.5-11.1); MONO % 4.3 % (3.8-10.2); NEUT % 80.7 % (42.8-82.8); PLATELET COUNT 199 10^3/uL (134-434); RBC 2.49 M/mm3 (3.60-5.2); RDW 14.9 % (11.6-15.6)
[2022-01-16 12:44] LABS: CHLORIDE 106 mmol/L (98-107); SODIUM 139 mmol/L (136-145)
[2022-01-16 12:46] LABS: ALBUMIN 3.3 g/dl (3.4-5.0); ANION GAP 14 MMOL/L (8-16); BLOOD UREA NITROGEN 96.6 mg/dL (7-18); CALCIUM 7.7 mg/dL (8.5-10.1); CO2 19 mmol/L (21-32); GLUCOSE,RANDOM 94 mg/dL (74-106)
[2022-01-16 12:49] LABS: SGOT/AST 17 U/L (15-37); SGPT/ALT 17 U/L (13-61)
[2022-01-16 12:51] LABS: BILIRUBIN,TOTAL 0.3 mg/dL (0.2-1); TOT PROT 6.6 g/dl (6.4-8.2)
[2022-01-16 12:52] LABS: ALK PHOS 79 U/L (45-117)
[2022-01-16 13:05] LABS: CREATININE 10.6 mg/dL (0.55-1.3)
[2022-01-16 13:13] LABS: INR 0.95 (0.83-1.09); PROTHROMBIN TIME (PATIENT) 10.9 SEC (9.7-13.0)
[2022-01-16 13:16] LABS: ACTIVATED PTT 28.4 SECONDS (25.2-36.5)
[2022-01-16] MEDS ORDERED: ACETAMINOPHEN 1000 MG/100 ML BAG IVPB PRN ×2 (15:22→17:18)
[2022-01-16] MEDS ORDERED: ONDANSETRON 4 MG/2 ML VIAL IVPUSH PRN (16:18)
[2022-01-16] MEDS ORDERED: ceFAZolin SODIUM 1 GM VIAL IVPB ONE (16:30)
[2022-01-16] MEDS ORDERED: LIDOCAINE HCL 1%, 10 MG/ML (20ML VIAL) INF ONE ×2 (16:41)
[2022-01-16] MEDS ORDERED: oxyCODONE HCL 5 MG TABLET PO PRN (17:18)
[2022-01-16 18:55] VITALS: BMI 33.5
[2022-01-16] MEDS: CALCIUM ACETATE 667 MG CAPSULE (FP) PO SCH (19:03)
[2022-01-16] MEDS ORDERED: ATORVASTATIN CA 10 MG TABLET (FP) PO SCH (22:00)
[2022-01-17] MEDS: CALCIUM ACETATE 667 MG CAPSULE (FP) PO SCH ×3 (08:16→19:40)
[2022-01-17 08:34] LABS: BASO % 0.4 % (0-2.0); CHLORIDE 110 mmol/L (98-107); EOS % 0.2 % (0-4.5); LYMPH % 8.5 % (8-40); MCH 32.6 pg (25.7-33.7); MCHC 34.6 g/dl (32.0-36.0); MEAN CELL VOLUME 94.3 fl (80-96); MEAN PLT VOLUME 7.5 fl (7.5-11.1); MONO % 3.7 % (3.8-10.2); NEUT % 87.2 % (42.8-82.8); PLATELET COUNT 188 10^3/uL (134-434); RBC 2.44 M/mm3 (3.60-5.2); RDW 14.7 % (11.6-15.6); SODIUM 141 mmol/L (136-145); WHITE BLOOD COUNT 7.8 K/mm3 (4.0-10.0)
[2022-01-17 08:36] LABS: CALCIUM 7.4 mg/dL (8.5-10.1)
[2022-01-17 08:37] LABS: ALBUMIN 3.1 g/dl (3.4-5.0); ANION GAP 13 MMOL/L (8-16); BLOOD UREA NITROGEN 92.9 mg/dL (7-18); CO2 17 mmol/L (21-32); GLUCOSE,RANDOM 99 mg/dL (74-106); MAGNESIUM 2.5 mg/dL (1.8-2.4)
[2022-01-17 08:39] LABS: SGPT/ALT 15 U/L (13-61)
[2022-01-17 08:40] LABS: PHOSPHOROUS 8.1 mg/dL (2.5-4.9); SGOT/AST 13 U/L (15-37)
[2022-01-17 08:41] LABS: BILIRUBIN,TOTAL 0.3 mg/dL (0.2-1); TOT PROT 6.2 g/dl (6.4-8.2)
[2022-01-17 08:42] LABS: ALK PHOS 65 U/L (45-117)
[2022-01-17 08:48] LABS: CREATININE 10.7 mg/dL (0.55-1.3)
[2022-01-17 16:22] VITALS: TEMP 98.3
[2022-01-17] MEDS ORDERED: SODIUM CHLORIDE 250 ML IV PRN (17:56)
[2022-01-17 20:08] VITALS: BP 161/88; PULSE 113
== END 2022-01-17 20:08 | disposition home or self-care (01) | DRG 314 ==
LOC: JER 10:22 → JERBED 12:51 → J5S 18:40
PROVIDERS: ADMIT Internal Medicine; ATTEND Internal Medicine
PROC: B518ZZA Fluoroscopy of Superior Vena Cava, Guidance (ICD-10-PCS; 2022-01-16)
PROC: 02HV33Z Insertion of Infusion Device into Superior Vena Cava, Percutaneous Approach (ICD-10-PCS; principal; 2022-01-16 16:00)
DX: T82.868A Thrombosis due to vascular prosthetic devices, implants and grafts, initial encounter (principal); N18.6 End stage renal disease; I12.0 Hypertensive chronic kidney disease with stage 5 chronic kidney disease or end stage renal disease; Q61.3 Polycystic kidney, unspecified; E78.5 Hyperlipidemia, unspecified; Z99.2 Dependence on renal dialysis; Y83.8 Other surgical procedures as the cause of abnormal reaction of the patient, or of later complication, without mention of misadventure at the time of the procedure; R94.31 Abnormal electrocardiogram [ECG] [EKG]
CPT/HCPCS: 36415; 71045-TC-FY; 76000-TC-FY; 80053; 83735; 84100; 85025; 85610; 85730; 86803; 86850; 86900; 86901; 87340; 93005; 93010; 94760; 99285-25; C9803-CS; U0003; U0005

== ENCOUNTER → 2022-01-16 | Day surgery (SDC) | payer MEDICARE ==
[2022-01-15 14:03] VITALS: BMI 35.2
[~2022-01-16] MED LIST: EPOETIN ALFA-EPBX 4,000 UNIT/ML VIAL IVPUSH ONE; HEPARIN NA (PORCINE) 5,000 UNITS/ML 1ML VIAL ONE; LIDOCAINE HCL 1%, 10 MG/ML (20ML VIAL) ONE; MIDAZOLAM HCL 2 MG/2 ML SINGLE DOSE VIAL ONE; PROPOFOL 20 ML ONE; SODIUM CHLORIDE 250 ML IV PRN; ceFAZolin SODIUM 1 GM VIAL ONE
== END | disposition home or self-care (01) ==
LOC: JASU-SURG 04:17
PROVIDERS: ATTEND Surgery
DX: Z53.8 Procedure and treatment not carried out for other reasons (principal)
CPT/HCPCS: J1644

== ENCOUNTER 2022-02-06 04:26 | Day surgery (SDC) | payer MEDICARE, OTHER ==
[2022-02-05 14:05] VITALS: BMI 33.0
[2022-02-06] MEDS ORDERED: LIDOCAINE HCL 1%, 10 MG/ML (20ML VIAL) ONE (14:45)
[2022-02-06] MEDS ORDERED: HEPARIN NA (PORCINE) 5,000 UNITS/ML 1ML VIAL ONE (14:45)
[2022-02-06] MEDS ORDERED: LIDOCAINE HCL 1%, 10 MG/ML (20ML VIAL) NR ONE (15:52)
[2022-02-06] MEDS ORDERED: HEPARIN NA (PORCINE) 5,000 UNITS/ML 1ML VIAL SQ ONE (15:53)
[2022-02-06] MEDS ORDERED: ONDANSETRON 4 MG/2 ML VIAL IVPUSH PRN (15:57)
[2022-02-06] MEDS ORDERED: oxyCODONE HCL 5 MG TABLET PO PRN ×2 (15:57)
[2022-02-06] MEDS ORDERED: PROPOFOL 20 ML ONE (15:58)
[2022-02-06] MEDS ORDERED: MIDAZOLAM HCL 2 MG/2 ML SINGLE DOSE VIAL ONE (15:58)
[2022-02-06] MEDS ORDERED: SODIUM CHLORIDE 1,000 ML IV SCH (16:00)
[2022-02-06 19:45] VITALS: BP 132/72; PULSE 92; TEMP 98
== END 2022-02-06 19:50 | disposition home or self-care (01) ==
LOC: JASU-SURG 04:26
PROVIDERS: ATTEND Surgery
PROC: 05WY03Z Revision of Infusion Device in Upper Vein, Open Approach (ICD-10-PCS; principal; 2022-02-06 16:00)
DX: T82.898A Other specified complication of vascular prosthetic devices, implants and grafts, initial encounter (principal); I12.0 Hypertensive chronic kidney disease with stage 5 chronic kidney disease or end stage renal disease; N18.6 End stage renal disease; Z99.2 Dependence on renal dialysis
CPT/HCPCS: 36415; 84132; 84703; 93005; 93010; 94760; J1644

== ENCOUNTER 2022-03-04 04:25 | Day surgery (SDC) | payer MEDICARE, OTHER ==
[2022-03-03 10:44] VITALS: BMI 33.0
[2022-03-04] MEDS ORDERED: PROPOFOL 20 ML ONE ×2 (12:53→13:40)
[2022-03-04] MEDS ORDERED: SUCCINYLCHOLINE CHLORIDE 200 MG/10 ML SYRINGE ONE (12:59)
[2022-03-04] MEDS ORDERED: LIDOCAINE HCL/PF 2% SDV 5ML VIAL ONE (13:00)
[2022-03-04] MEDS ORDERED: MIDAZOLAM HCL 2 MG/2 ML SINGLE DOSE VIAL ONE (13:01)
[2022-03-04] MEDS ORDERED: SEVOFLURANE 250 ML BTL ONE (13:02)
[2022-03-04] MEDS ORDERED: oxyCODONE HCL 5 MG TABLET PO PRN (13:04)
[2022-03-04] MEDS ORDERED: ONDANSETRON 4 MG/2 ML VIAL IVPUSH PRN (13:04)
[2022-03-04] MEDS ORDERED: LACTATED RINGERS SOLUTION 1,000 ML IV SCH (13:15)
[2022-03-04] MEDS ORDERED: ALBUTEROL SO4 0.083% IH SOL 2.5 MG/3 ML VIAL.NEB. NEB ONE (15:54)
[2022-03-04 17:41] VITALS: TEMP 97.8
[2022-03-04 17:44] VITALS: BP 112/64; PULSE 97
== END 2022-03-04 17:37 | disposition home or self-care (01) ==
LOC: JASU-SURG 04:25
PROVIDERS: ATTEND Obstetrics & Gynecology
PROC: 0UDB8ZX Extraction of Endometrium, Via Natural or Artificial Opening Endoscopic, Diagnostic (ICD-10-PCS; principal; 2022-03-04 13:00)
DX: N93.8 Other specified abnormal uterine and vaginal bleeding (principal); Q51.3 Bicornate uterus
CPT/HCPCS: 36415; 84132; 84703; 88305-TC; 94760

== ENCOUNTER 2022-12-11 15:16 | Inpatient (IN) | payer MEDICARE ==
[2022-12-11 15:57] VITALS: BMI 32.8
[2022-12-11 17:14] LABS: CALCIUM 8.9 mg/dL (8.5-10.1)
[2022-12-11 17:15] LABS: BLOOD UREA NITROGEN 31.5 mg/dL (7-18)
[2022-12-11 17:18] LABS: CREATININE 5.9 mg/dL (0.55-1.3)
[2022-12-11 17:53] LABS: BASO % 0.2 % (0-2.0); EOS % 0.2 % (0-4.5); HEMATOCRIT 35.3 % (32.4-45.2); HEMOGLOBIN 12.1 GM/dL (10.7-15.3); MCH 32.4 pg (25.7-33.7); MCHC 34.4 g/dl (32.0-36.0); MEAN CELL VOLUME 94.4 fl (80-96); MEAN PLT VOLUME 7.7 fl (7.5-11.1); MONO % 5.4 % (3.8-10.2); NEUT % 85.2 % (42.8-82.8); PLATELET COUNT 211 10^3/uL (134-434); RBC 3.74 M/mm3 (3.60-5.2); RDW 14.2 % (11.6-15.6); WHITE BLOOD COUNT 10.1 K/mm3 (4.0-10.0)
[2022-12-11 18:16] LABS: INR 0.96 (0.83-1.09); PROTHROMBIN TIME (PATIENT) 11.1 SEC (9.7-13.0)
[2022-12-11 18:19] LABS: ACTIVATED PTT 27.6 SECONDS (25.2-36.5)
[2022-12-11 18:20] LABS: ANISOCYTOSIS 1+; MACROCYTOSIS 0
[2022-12-11] MEDS ORDERED: ATORVASTATIN CA 10 MG TABLET (FP) PO SCH (22:00)
[2022-12-11] MEDS ORDERED: traZODone HCL 50 MG TABLET (FP) PO SCH (22:00)
[2022-12-11] MEDS ORDERED: ONDANSETRON 4 MG/2 ML VIAL IVPUSH PRN (22:29)
[2022-12-11] MEDS ORDERED: oxyCODONE HCL 5 MG TABLET PO PRN (22:29)
[2022-12-11] MEDS ORDERED: SODIUM CHLORIDE 1,000 ML IV SCH (22:30)
[2022-12-11] MEDS ORDERED: MIDAZOLAM HCL 2 MG/2 ML SINGLE DOSE VIAL ONE (22:33)
[2022-12-11] MEDS ORDERED: PROPOFOL 20 ML ONE ×2 (22:33→23:32)
[2022-12-11] MEDS ORDERED: HEPARIN NA (PORCINE) 5,000 UNITS/ML 1ML VIAL ONE (22:35)
[2022-12-11] MEDS ORDERED: LIDOCAINE HCL 1%, 10 MG/ML (20ML VIAL) ONE (22:35)
[2022-12-11] MEDS ORDERED: POVIDONE-IODINE OINTMENT 10% - 28.4 GM TUBE ONE (22:36)
[2022-12-12] MEDS ORDERED: ONDANSETRON 4 MG/2 ML VIAL IVPUSH PRN (00:44)
[2022-12-12] MEDS ORDERED: oxyCODONE HCL 5 MG TABLET PO PRN ×2 (00:44→01:41)
[2022-12-12] MEDS ORDERED: SODIUM CHLORIDE 1,000 ML IV SCH (00:44)
[2022-12-12] MEDS ORDERED: ACETAMINOPHEN 325 MG TABLET (FP) PO PRN (01:41)
[2022-12-12 02:23] VITALS: RESP 18
[2022-12-12] MEDS ORDERED: CALCIUM ACETATE 667 MG CAPSULE (FP) PO SCH (08:00)
[2022-12-12] MEDS: CALCIUM ACETATE 667 MG CAPSULE (FP) PO SCH ×2 (09:01→12:18)
[2022-12-12] MEDS ORDERED: PANTOPRAZOLE 40 MG TABLET PO SCH ×2 (10:00)
[2022-12-12] MEDS ORDERED: PATIENT'S OWN MEDICATION (NON-FORMULARY) (Linaclotide [Linzess] 145 MCG) PO SCH (10:00)
[2022-12-12] MEDS ORDERED: PATIENT'S OWN MEDICATION (NON-FORMULARY) (Linaclotide [Linzess] 145 MCG Capsule) PO SCH (10:00)
[2022-12-12 11:17] VITALS: PULSE 96
[2022-12-12 11:41] LABS: HEMATOCRIT 30.2 % (32.4-45.2); HEMOGLOBIN 10.5 GM/dL (10.7-15.3); MCH 32.8 pg (25.7-33.7); MCHC 34.9 g/dl (32.0-36.0); MEAN CELL VOLUME 94.2 fl (80-96); MEAN PLT VOLUME 7.6 fl (7.5-11.1); PLATELET COUNT 183 10^3/uL (134-434); RDW 14.6 % (11.6-15.6); WHITE BLOOD COUNT 7.9 K/mm3 (4.0-10.0)
[2022-12-12 11:59] LABS: CHLORIDE 94 mmol/L (98-107); SODIUM 134 mmol/L (136-145)
[2022-12-12 12:04] LABS: CALCIUM 8.4 mg/dL (8.5-10.1)
[2022-12-12 12:05] LABS: ALBUMIN 2.9 g/dl (3.4-5.0); ANION GAP 14 MMOL/L (8-16); BLOOD UREA NITROGEN 54.5 mg/dL (7-18); CO2 26 mmol/L (21-32); GLUCOSE,RANDOM 116 mg/dL (74-106)
[2022-12-12 12:08] LABS: SGOT/AST 17 U/L (15-37); SGPT/ALT 22 U/L (13-61)
[2022-12-12 12:09] LABS: BILIRUBIN,TOTAL 0.4 mg/dL (0.2-1); TOT PROT 6.3 g/dl (6.4-8.2)
[2022-12-12 12:10] LABS: ALK PHOS 71 U/L (45-117)
[2022-12-12 12:15] LABS: CREATININE 8.5 mg/dL (0.55-1.3)
[2022-12-12] MEDS ORDERED: SODIUM ZIRCONIUM CYCLOSILICATE (LOKELMA) 5 GM PACKET PO SCH (12:30)
[2022-12-12 16:01] VITALS: BP 152/88; TEMP 98.9
[2022-12-12] MEDS ORDERED: traZODone HCL 50 MG TABLET (FP) PO SCH (22:00)
[2022-12-12] MEDS ORDERED: ATORVASTATIN CA 10 MG TABLET (FP) PO SCH (22:00)
== END 2022-12-12 15:09 | disposition home or self-care (01) | DRG 252 ==
LOC: JER 15:16 → JERBED 19:50 → J5S 12-12 01:04
PROVIDERS: ADMIT Internal Medicine; ATTEND Internal Medicine
PROC: 057Y3ZZ Dilation of Upper Vein, Percutaneous Approach (ICD-10-PCS; principal; 2022-12-12)
DX: T82.590A Other mechanical complication of surgically created arteriovenous fistula, initial encounter (principal); N18.6 End stage renal disease; I12.0 Hypertensive chronic kidney disease with stage 5 chronic kidney disease or end stage renal disease; Q61.3 Polycystic kidney, unspecified; Z99.2 Dependence on renal dialysis; E78.5 Hyperlipidemia, unspecified; Y83.9 Surgical procedure, unspecified as the cause of abnormal reaction of the patient, or of later complication, without mention of misadventure at the time of the procedure
CPT/HCPCS: 0241U-QW; 36415; 76000-TC-FY; 80048; 80053; 84484; 84703; 85025; 85027; 85610; 85730; 86850; 86900; 86901; 93005; 93010; 94760; 99285-25; J1644

== ENCOUNTER → 2023-02-09 | Day surgery (SDC) | payer MEDICARE, OTHER | END | disposition home or self-care (01) | LOC: FMAMMOTONE 08:01 | PROVIDERS: ATTEND Family Medicine | PROC: 0HBT3ZX Excision of Right Breast, Percutaneous Approach, Diagnostic (ICD-10-PCS; principal; 2023-02-09) | DX: Z53.8 Procedure and treatment not carried out for other reasons (principal); R92.1 Mammographic calcification found on diagnostic imaging of breast | CPT/HCPCS: 19081 ==

== ENCOUNTER → 2024-06-29 | Day surgery (SDC) | payer MEDICARE, OTHER | END | disposition home or self-care (01) | LOC: FMAMMOTONE 08:07 | PROVIDERS: ATTEND Registered Nurse | PROC: 0HBT3ZX Excision of Right Breast, Percutaneous Approach, Diagnostic (ICD-10-PCS; principal; 2024-06-29) | DX: N60.11 Diffuse cystic mastopathy of right breast (principal); N64.89 Other specified disorders of breast; N64.1 Fat necrosis of breast; R92.1 Mammographic calcification found on diagnostic imaging of breast | CPT/HCPCS: 19081; 76098-TC-FY; 87899; 88305-TC; A4648 ==

== ENCOUNTER 2025-03-12 16:22 | Emergency (ER) | payer MEDICARE, OTHER ==
[2025-03-12 16:33] VITALS: BP 134/72; PULSE 91; RESP 19; TEMP 98.8; BMI 33.5
[2025-03-12] MEDS ORDERED: oxyCODONE HCL 5 MG TABLET ONE (17:53)
[2025-03-12] MEDS ORDERED: LIDOCAINE 5% TOPICAL PATCH ONE (17:53)
[2025-03-12] MEDS ORDERED: ACETAMINOPHEN 500 MG TABLET (FP) ONE (17:55)
[2025-03-12] MEDS: ACETAMINOPHEN 500 MG TABLET (FP) PO ONE (17:58)
[2025-03-12] MEDS: oxyCODONE HCL 5 MG TABLET PO ONE (17:58)
[2025-03-12] MEDS: LIDOCAINE 5% TOPICAL PATCH TP ONE (17:58)
[2025-03-12] MEDS ORDERED: LIDOCAINE PATCH REMOVAL MC SCH (22:00)
== END 2025-03-12 17:45 | disposition home or self-care (01) ==
LOC: JERFT 16:22
DX: M25.562 Pain in left knee (principal); G89.29 Other chronic pain
CPT/HCPCS: 99283-25